=== PATIENT | female | born 1960 | race Caucasian/White ===

== ENCOUNTER 2023-01-14 17:15 | Emergency (ER) | payer OTHER, SELFPAY ==
[2023-01-14 17:31] VITALS: BP 170/89; PULSE 76; RESP 20; TEMP 36.9; O2SAT 96; BMI 38.0
--- NOTE | 2023-01-14 17:48 | XR_ITS ---
The [address] [address] Patient Name: CHICO PORTER MRN: [facility]:[id number] date: 1960 Sex: F Assigned Patient Location: ER Current Patient Location: ER Accession/Order Number: [id number] Exam Date: 01/14/2023 18:20 Report Date: 01/14/2023 19:18 At the request of: SHELBY CASTILLO Procedure: XR knee LT 4V EXAM: XR knee LT 4V HISTORY: The patient is a 62-year-old female with Left knee pain COMPARISON: None. FINDINGS: The left knee is radiographically negative with no evidence of fracture, dislocation, joint space narrowing, osteophytes, or other osseous or articular abnormalities. IMPRESSION: Negative. Electronically authenticated by: TERRI SURESH Date: 01/14/2023 19:18
--- NOTE | 2023-01-14 17:57 | ED.LOWEXI1 ---
HPI - Extremity Injury (Lower) General Chief Complaint: Extremity Injury, Lower Stated Complaint: LOWER EXTREMITY LEFT KNEE PAIN Time Seen by Provider: 01/14/23 17:32 Source: patient Mode of arrival: Wheelchair History of Present Illness HPI Narrative: Patient is a 62-year-old female presents to the emergency department for a two week history of pain in the left knee. She states for the last two weeks she has had pain in the left posterior knee without injury. She states she has an appointment this week with her orthopedic doctor but today when she stood up she felt a pop in the posterior left knee and developed pain along the left side of the thigh and anterior left knee. She states she is having difficulty with weightbearing at this time. No medications taken prior to arrival. She states she did have some tingling in her toes when she felt a pop in the back of her knee. She had no fall or other associated injuries. Related Data Previous Rx's Medication Instructions Recorded methocarbamol 750 mg tablet 750 mg PO TID PRN muscle 01/14/23 pain/spasm #12 tabs methylprednisolone 4 mg tablets in 4 mg PO DAILY #21 ea 01/14/23 a dose pack (Medrol (Vipin)) methylprednisolone 4 mg tablets in 4 mg PO DAILY #21 ea 01/14/23 a dose pack (Medrol (Viipn)) Allergies Allergy/AdvReac Type Severity Reaction Status Date / Time cephalexin Allergy Severe Verified 01/14/23 17:31 iv dye Allergy Severe Uncoded 01/14/23 17:31 Review of Systems ROS Constitutional Denies: fever or chills Ears, nose, mouth, and throat Denies: neck pain Cardiovascular Denies: chest pain Respiratory Denies: shortness of breath Gastrointestinal Denies: vomiting Musculoskeletal Denies: back pain or neck pain PFSH PFS Social History Previous occupational history: Lives at home, unmarried Occupational History Previous occupational history: Lives at home, unmarried Exam Narrative Exam Narrative: Gen.: Awake, alert, in no distress Head: Normocephalic, atraumatic Extremities: Moves extremities equally, pain with flexion and extension at the left knee, no laxity of the left anterior patella. 2+ DP pulses bilaterally. Normal dorsiflexion and plantarflexion of the lower extremities. No bony point tenderness or obvious deformity noted. Psych: Normal mood and affect Neuro: No focal neuro deficit Skin: Warm, dry, intact Constitutional Vital Signs - 24 hr 01/14/23 17:31 Temperature 98.4 F Pulse Rate [Monitor] 76 Respiratory Rate 20 Blood Pressure [Right Arm] 170/89 H Pulse Oximetry 96 Oxygen Delivery Method Room Air Course Vital Signs Vital signs: Vital Signs Temperature 98.4 F 01/14/23 17:31 Pulse Rate 76 01/14/23 17:31 Respiratory Rate 20 01/14/23 17:31 Blood Pressure 170/89 H 01/14/23 17:31 Pulse Oximetry 96 01/14/23 17:31 Oxygen Delivery Method Room Air 01/14/23 17:31 Temperature 98.4 F 01/14/23 17:31 Pulse Rate 76 01/14/23 17:31 Respiratory Rate 20 01/14/23 17:31 Blood Pressure 170/89 H 01/14/23 17:31 Pulse Oximetry 96 01/14/23 17:31 Oxygen Delivery Method Room Air 01/14/23 17:31 MDM - Extremity Injury (Lower) MDM Narrative Medical decision making narrative: X-rays are unremarkable, exam is consistent with soft tissue injury of the knee, patient placed in a large Jagdish wrap, she is given a prescription for a walker for stability and will be placed on muscle relaxants, Medrol Dosepak for home. Follow-up with ortho as scheduled and return to the emergency department if symptoms change or worsen. She is neurovascularly intact at discharge. Imaging Data Left knee x-ray: Attestation: I personally reviewed and interpreted this imaging study as follows: Radiologist's impression: SHELBY CASTILLO Procedure: XR knee LT 4V EXAM: XR knee LT 4V HISTORY: The patient is a 62-year-old female with Left knee pain COMPARISON: None. FINDINGS: The left knee is radiographically negative with no evidence of fracture, dislocation, joint space narrowing, osteophytes, or other osseous or articular abnormalities. IMPRESSION: Negative. Electronically authenticated by: TERRI SURESH Date: 01/14/2023 19:18 Discharge Plan Discharge Chief Complaint: Extremity Injury, Lower Clinical Impression: Knee pain, left Patient Disposition: Home, Self-Care Time of Disposition Decision: 19:28 Condition: Good Prescriptions / Home Meds: New methylprednisolone [Medrol (Vipin)] 4 mg tablets,dose pack 4 mg PO DAILY Qty: 21 0RF methocarbamol 750 mg tablet 750 mg PO TID PRN (Reason: muscle pain/spasm) Qty: 12 0RF methylprednisolone [Medrol (Vipin)] 4 mg tablets,dose pack 4 mg PO DAILY Qty: 21 0RF Instructions: Knee Pain (ED) Stand Alone Forms: Portal Instructions Referrals: Physician,Non-Staff, MD [Primary Care Provider] - 1 week Discharge Date/Time: 01/14/23 19:58
[2023-01-14] MEDS: HYDROCODONE/ACETAMINOPHEN 5-325 MG TABLET 1 TAB PO (18:14)
--- NOTE | 2023-01-14 19:01 | PC.NURSE ---
pt aware we are waiting on test result, knee elevated with pillow for comfort
== END 2023-01-14 19:58 | disposition home or self-care (01) ==
PROVIDERS: Emergency Provider Emergency Medicine
DX: M25.562 Pain in left knee (principal)
CPT/HCPCS: 73564; 99283